=== PATIENT | male | born 1985 | race African-American/Black ===

== ENCOUNTER 2019-08-27 20:33 | Emergency (ER) | payer SELFPAY ==
[~2019-08-27] VITALS: Ht 170.2 cm; Wt 68.0 kg
[2019-08-28 00:31] LABS: BASOPHILS % 0.5 % (0.0-2.0); EOSINOPHILS % 2.1 % (0.0-5.0); HEMATOCRIT. 38.1 % (42.0-52.0); HEMOGLOBIN. 12.3 g/dL (14.0-18.0); LYMPHOCYTES % 24.3 % (20.0-50.0); MEAN CORPUSCULAR HEMOGLOBIN 25.6 pg (28.0-32.0); MEAN CORPUSCULAR VOLUME 79.1 fL (80.0-94.0); MEAN PLATELET VOLUME 8.1 fl (7.4-10.4); MONOCYTES % 9.9 % (2.0-8.0); NEUTROPHILS % 63.2 % (40.0-76.0); PLATELET 249 x1000/uL (130-400); RED BLOOD CELL COUNT 4.81 mill/uL (4.7-6.1); RED CELL DISTRIBUTION WIDTH 14.2 % (11.6-14.6)
[2019-08-28 00:35] LABS: CHLORIDE 107 mEq/L (98-107)
[2019-08-28 00:42] LABS: ETHANOL BLOOD < 10 mg/dL
[2019-08-28 00:48] LABS: *AMPHETAMINES SCREEN URINE NEGATIVE (NEGATIVE); *BARBITURATES SCREEN URINE NEGATIVE (NEGATIVE); *BENZODIAZEPINES SCREEN URINE NEGATIVE (NEGATIVE); *COCAINE SCREEN URINE NEGATIVE (NEGATIVE); METHADONE URINE SCREEN NEGATIVE (NEGATIVE); OPIATES URINE SCREEN NEGATIVE (NEGATIVE)
[2019-08-28 00:49] LABS: CANNABINOID URINE SCREEN NEGATIVE (NEGATIVE); PHENCYCLIDINE URINE SCREEN NEGATIVE (NEGATIVE)
[2019-08-28 11:02] VITALS: BP 115/82
== END 2019-08-28 11:04 | disposition home or self-care (01) ==
LOC: ER 20:33
DX: R45.851 Suicidal ideations (principal); R03.0 Elevated blood-pressure reading, without diagnosis of hypertension; F31.9 Bipolar disorder, unspecified
CPT/HCPCS: 36415; 80053; 80305; 80307; 80320; 80329; 85025; 99284; G0480

== ENCOUNTER 2024-09-04 17:50 | Emergency (ER) | payer OTHER ==
[~2024-09-04] VITALS: Ht 172.7 cm; Wt 64.0 kg
[2024-09-04 17:52] VITALS: O2SAT 99
[2024-09-04 18:40] LABS: BASOPHILS % 0.9 % (0.0-2.0); DIFFERENTIAL COMMENT 0; HEMOGLOBIN. 12.5 g/dL (14.0-18.0); LYMPHOCYTES % 23.6 % (20.0-50.0); MEAN CORPUSCULAR HEMOGLOBIN 25.3 pg (28.0-32.0); MEAN CORPUSCULAR HGB CONC 31.4 g/dL (31.0-37.0); MEAN CORPUSCULAR VOLUME 80.7 fL (80.0-94.0); MEAN PLATELET VOLUME 8.4 fl (7.4-10.4); MONOCYTES % 11.4 % (2.0-8.0); NEUTROPHILS % 60.1 % (40.0-76.0); PLATELET 342 x1000/uL (130-400); RED BLOOD CELL COUNT 4.96 mill/uL (4.7-6.1); RED CELL DISTRIBUTION WIDTH 14.9 % (11.6-14.6); WHITE BLOOD COUNT 7.5 x1000/uL (4.5-11.0)
[2024-09-04 18:48] LABS: CARBON DIOXIDE 18 mEq/L (21-32); CHLORIDE 102 mEq/L (98-107); POTASSIUM 3.5 mEq/L (3.5-5.1); SODIUM 140 mEq/L (136-145)
[2024-09-04 18:49] LABS: CALCIUM 10.1 mg/dL (8.7-10.4)
[2024-09-04 18:54] LABS: CREATININE 1.3 mg/dL (0.6-1.3); GLUCOSE 186 mg/dL (70-105); UREA NITROGEN BLOOD 13 mg/dL (9-23)
[2024-09-04 18:56] LABS: ACETAMINOPHEN < 2 ug/mL (10-30); AMMONIA < 17 uMol/L (<32); CREATINE KINASE 1100 IU/L (46-171)
[2024-09-04 19:01] LABS: ETHANOL BLOOD < 10 mg/dL (<10)
[2024-09-04 20:30] VITALS: BP 134/86; PULSE 110; RESP 16; TEMP 34.7; O2SAT 100
[2024-09-04] MEDS: TETANUS, DIPHTHERIA, PERTUSSIS VAC/PF 0.5ML (>10YR OLD) IM ONE (20:34)
[2024-09-04] MEDS: SODIUM CHLORIDE 0.9% 1,000 ML IV ONE (20:35)
== END 2024-09-04 20:36 ==
LOC: ER 17:50
DX: F15.10 Other stimulant abuse, uncomplicated (principal); R45.1 Restlessness and agitation; R51.9 Headache, unspecified; F31.9 Bipolar disorder, unspecified; Z79.899 Other long term (current) drug therapy
CPT/HCPCS: 80048; 80307; 80329; 80320; 82140; 82550; 85025; 36415; 71045; 70450; 90715; 93005; 90471; 99285; J7030; Z7610; G0480